=== PATIENT | male | born 1995 | race Caucasian/White ===

== ENCOUNTER 2021-03-26 14:23 | Emergency (ER) | payer BC, OTHER ==
[~2021-03-26] VITALS: Ht 170.2 cm; Wt 77.1 kg
[2021-03-26 15:28] VITALS: BP 117/84
== END 2021-03-26 15:28 | disposition home or self-care (01) ==
LOC: ER 14:23
DX: T20.59XA Corrosion of first degree of multiple sites of head, face, and neck, initial encounter (principal); T22.551A Corrosion of first degree of right shoulder, initial encounter; T22.5 Corrosion of first degree of shoulder and upper limb, except wrist and hand; T21.53XA Corrosion of first degree of upper back, initial encounter; T65.891A Toxic effect of other specified substances, accidental (unintentional), initial encounter; T32.0 Corrosions involving less than 10% of body surface; Y93.89 Activity, other specified; Y92.89 Other specified places as the place of occurrence of the external cause; Y99.8 Other external cause status

== ENCOUNTER 2021-06-18 19:36 | Emergency (ER) | payer OTHER, BC ==
[~2021-06-18] VITALS: Ht 172.7 cm; Wt 81.7 kg
[2021-06-18 20:38] VITALS: BP 120/85
== END 2021-06-18 20:40 | disposition home or self-care (01) ==
LOC: ER 19:36
DX: S61.012A Laceration without foreign body of left thumb without damage to nail, initial encounter (principal); F41.9 Anxiety disorder, unspecified; W25.XXXA Contact with sharp glass, initial encounter; Y93.89 Activity, other specified; Y92.89 Other specified places as the place of occurrence of the external cause; Y99.8 Other external cause status